=== PATIENT | male | born 1960 | race Caucasian/White ===

== ENCOUNTER 2016-06-19 11:44 | Inpatient (IN) | payer MEDICAID ==
[~2016-06-19] VITALS: Ht 182.9 cm; Wt 104.5 kg
[~2016-06-19 11:44] MED LIST: AMLO5TAB2 PO; BENA40TA PO; ISOS60TA24 PO; MET50T PO; PRE5T PO; TEMA30CA5 PO; TRAM50TA2 PO; TRAZ100T2 PO
[2016-06-19 13:16] LABS: Basophils # (auto) 0 uL; Basophils % (auto) 0.2 % (0.0-2.0); Eosinophils # (auto) 0 uL; Eosinophils % (auto) 0.2 % (0.0-7.0); Hematocrit 37.3 % (41.0-53.0); Hemoglobin 12.4 g/dL (13.5-17.5); Lymphocytes # (auto) 0.4 uL; Lymphocytes % (auto) 3.2 % (10.0-50.0); Mean Corpuscular Hemoglobin 29.6 pg (28.0-32.0); Mean Corpuscular Hgb Conc. 33.3 g/dL (32.0-36.0); Mean Corpuscular Volume 88.8 fL (80.0-100.0); Mean Platelet Volume 7.8 fL (7.4-10.4); Monocytes # (auto) 0.1 uL; Neutrophils # (auto) 10.4 uL; Neutrophils % (auto) 95.4 % (37.0-80.0); Platelet Count (auto) 277 10^3/uL (140-450); Red Cell Distribution Width 15.7 % (11.6-16.0); White Blood Cell 10.9 10^3/uL (4.4-10.8)
[2016-06-19 13:50] LABS: Albumin 2.8 g/dL (3.4-5.0); Alkaline Phosphatase 64 U/L (45-117); Anion Gap 15 (5-15); Aspartate Aminotransferase 22 U/L (15-37); BUN/Creatinine Ratio 14.9; Bilirubin, Total 0.5 mg/dL (0.2-1.0); Blood Urea Nitrogen 47 mg/dL (7-18); Calcium 8.6 mg/dL (8.5-10.1); Carbon Dioxide 19 mmol/L (21-32); Chloride 110 mmol/L (98-107); GFR African American 26 mL/min; GFR Non-African American 22 mL/min; Glucose 241 mg/dL (74-106); Sodium 144 mmol/L (136-145); Total Protein 6.5 g/dL (6.4-8.2)
[2016-06-19 14:08] LABS: Potassium 5.8 mmol/L (3.5-5.1)
[2016-06-19] MEDS ORDERED: ALBUTEROL SULF 2.5 MG/0.5ML(0.5%) NEB SOLN NEB STA (14:23)
[2016-06-19] MEDS ORDERED: SODIUM BICARBONATE 8.4% INJ 50ML SYRINGE IV ONE (14:30)
[2016-06-19] MEDS ORDERED: InsuLIN REG 1unit/0.01ml Soln (100units/ml) IV ONE (14:30)
[2016-06-19] MEDS ORDERED: DEXTROSE (50%) 50ML SYRG IV ONE (14:30)
[2016-06-19] MEDS ORDERED: CALCIUM GLUC 4.65 MEQ/10ML 4.65 MEQ in SODIUM CHL 0.9% 50 ML IV ONE (14:30)
[2016-06-19] MEDS ORDERED: SODIUM CHLORIDE 0.9% 1,000 ML IV ONE (14:47)
[2016-06-19] MEDS ORDERED: cefTRIAXone 1GM/50ML D5W 50 ML IV ONE ×2 (15:00→16:45)
[2016-06-19] MEDS ORDERED: TEMAZEPAM 15 MG CAP PO PRN (16:15)
[2016-06-19] MEDS ORDERED: MORPHINE SULF INJ 2 MG/ML SYRINGE 1ML IV PRN (16:15)
[2016-06-19] MEDS ORDERED: ONDANSETRON HCL 4 MG/2 ML VIAL IV PRN (16:15)
[2016-06-19] MEDS ORDERED: traMADol HCL 50 MG TAB PO PRN (16:15)
[2016-06-19] MEDS ORDERED: NITROGLYCERIN 0.4 MG SL TAB SL PRN (16:15)
[2016-06-19] MEDS ORDERED: predniSONE 5 MG TAB PO ONE (16:45)
[2016-06-19] MEDS ORDERED: amLODIPine BESYLATE 5 MG TAB PO ONE (16:45)
[2016-06-19] MEDS ORDERED: AZITHROMYCIN 500MG/D5W 250ML 250 ML IV ONE (16:45)
[2016-06-19] MEDS: MORPHINE SULF INJ 2 MG/ML SYRINGE 1ML IV PRN ×2 (16:46→23:56)
[2016-06-19] MEDS: ALBUTEROL SULF 2.5 MG/0.5ML(0.5%) NEB SOLN NEB SCH (18:15)
[2016-06-19] MEDS: SODIUM CHLORIDE 0.9% 1,000 ML IV SCH (18:21)
[2016-06-19 21:00] VITALS: BP 157/97
[2016-06-19] MEDS: traZODone HCL 50 MG TAB PO SCH (22:35)
[2016-06-20] MEDS: ALBUTEROL SULF 2.5 MG/0.5ML(0.5%) NEB SOLN NEB SCH ×5 (00:37→23:15)
[2016-06-20 03:51] VITALS: BP 157/97
[2016-06-20] MEDS ORDERED: GABA-339 PO (05:10)
[2016-06-20 05:31] VITALS: BP 119/85
[2016-06-20] MEDS: MORPHINE SULF INJ 2 MG/ML SYRINGE 1ML IV PRN ×2 (06:16→19:39)
[2016-06-20 07:19] LABS: Basophils # (auto) 0 uL; Eosinophils # (auto) 0 uL; Eosinophils % (auto) 0.1 % (0.0-7.0); Hematocrit 32.7 % (41.0-53.0); Hemoglobin 10.7 g/dL (13.5-17.5); Lymphocytes # (auto) 0.7 uL; Lymphocytes % (auto) 5.6 % (10.0-50.0); Mean Corpuscular Hemoglobin 29.2 pg (28.0-32.0); Mean Corpuscular Hgb Conc. 32.8 g/dL (32.0-36.0); Mean Platelet Volume 7.9 fL (7.4-10.4); Monocytes # (auto) 0.5 uL; Monocytes % (auto) 3.9 % (0.0-12.0); Neutrophils % (auto) 90.4 % (37.0-80.0); Platelet Count (auto) 258 10^3/uL (140-450); Red Cell Distribution Width 15.8 % (11.6-16.0); White Blood Cell 13.2 10^3/uL (4.4-10.8)
[2016-06-20 07:51] LABS: BUN/Creatinine Ratio 16.1; Calcium 8.9 mg/dL (8.5-10.1); Potassium 5.2 mmol/L (3.5-5.1)
[2016-06-20] MEDS: SODIUM CHLORIDE 0.9% 1,000 ML IV SCH ×2 (08:00→19:42)
[2016-06-20] MEDS: cefTRIAXone 1GM/50ML D5W 50 ML IV SCH (08:00)
[2016-06-20 09:00] VITALS: BP 130/78
[2016-06-20] MEDS: AZITHROMYCIN 500MG/D5W 250ML 250 ML IV SCH (09:48)
[2016-06-20] MEDS: predniSONE 5 MG TAB PO SCH (09:49)
[2016-06-20] MEDS: amLODIPine BESYLATE 5 MG TAB PO SCH (09:49)
[2016-06-20] MEDS: HYDROcodone-ACET 5/325MG TAB PO PRN ×3 (11:21→23:48)
[2016-06-20 13:00] VITALS: BP 124/78
[2016-06-20] MEDS ORDERED: DEXTROSE (50%) 50ML SYRG IV PRN (13:00)
[2016-06-20] MEDS ORDERED: GABAPENTIN 300 MG CAP PO ONE (13:00)
[2016-06-20] MEDS ORDERED: SODIUM POLYSTYRENE SULF 15GM/60ML SUSP PO ONE (13:00)
[2016-06-20 17:00] VITALS: BP 138/92
[2016-06-20] MEDS: InsuLIN REG 1unit/0.01ml Soln (100units/ml) SC SCH ×2 (17:00→21:48)
[2016-06-20] MEDS: ACCU-CHEK COMFORT CURVE STRIP VI SCH ×2 (17:08→21:48)
[2016-06-20] MEDS: Boost Glucose Control 8 Ounces PO SCH ×2 (17:24→21:42)
[2016-06-20] MEDS: GABAPENTIN 300 MG CAP PO SCH (21:41)
[2016-06-20] MEDS: traZODone HCL 50 MG TAB PO SCH (21:42)
[2016-06-20 22:00] VITALS: BP 126/76
[2016-06-21 05:42] VITALS: BP 134/90
[2016-06-21] MEDS: HYDROcodone-ACET 5/325MG TAB PO PRN (06:03)
[2016-06-21] MEDS: Boost Glucose Control 8 Ounces PO SCH ×2 (06:05→12:00)
[2016-06-21] MEDS: InsuLIN REG 1unit/0.01ml Soln (100units/ml) SC SCH ×2 (06:34→11:56)
[2016-06-21] MEDS: ACCU-CHEK COMFORT CURVE STRIP VI SCH ×2 (06:34→11:56)
[2016-06-21 07:08] LABS: Basophils # (auto) 0 uL; Basophils % (auto) 0.7 % (0.0-2.0); Eosinophils # (auto) 0.3 uL; Eosinophils % (auto) 4.6 % (0.0-7.0); Hematocrit 37.6 % (41.0-53.0); Hemoglobin 12.6 g/dL (13.5-17.5); Lymphocytes # (auto) 2.2 uL; Mean Corpuscular Hemoglobin 29.1 pg (28.0-32.0); Mean Corpuscular Hgb Conc. 33.6 g/dL (32.0-36.0); Mean Corpuscular Volume 86.7 fL (80.0-100.0); Mean Platelet Volume 7.4 fL (7.4-10.4); Monocytes # (auto) 0.5 uL; Monocytes % (auto) 8.5 % (0.0-12.0); Neutrophils # (auto) 2.9 uL; Neutrophils % (auto) 49.2 % (37.0-80.0); Platelet Count (auto) 221 10^3/uL (140-450); Red Cell Distribution Width 14.3 % (11.6-16.0); White Blood Cell 5.8 10^3/uL (4.4-10.8)
[2016-06-21 07:18] LABS: Albumin 2.5 g/dL (3.4-5.0); Calcium 7.8 mg/dL (8.5-10.1); Potassium 3.8 mmol/L (3.5-5.1)
[2016-06-21 07:22] LABS: Bilirubin, Total 0.6 mg/dL (0.2-1.0); Total Protein 5.6 g/dL (6.4-8.2)
[2016-06-21] MEDS: ALBUTEROL SULF 2.5 MG/0.5ML(0.5%) NEB SOLN NEB SCH ×2 (08:23→12:00)
[2016-06-21] MEDS: cefTRIAXone 1GM/50ML D5W 50 ML IV SCH (08:44)
[2016-06-21 09:00] VITALS: BP 126/86
[2016-06-21] MEDS: AZITHROMYCIN 500MG/D5W 250ML 250 ML IV SCH (09:38)
[2016-06-21] MEDS: GABAPENTIN 300 MG CAP PO SCH (09:38)
[2016-06-21] MEDS: amLODIPine BESYLATE 5 MG TAB PO SCH (09:38)
[2016-06-21] MEDS: predniSONE 5 MG TAB PO SCH (09:38)
[2016-06-21 13:00] VITALS: BP 120/81
[2016-06-21 13:11] VITALS: BP 120/81
== END 2016-06-21 18:40 | disposition home or self-care (01) | DRG 139 ==
LOC: ER 11:44 → TELE 11:45 → TELE-EAST 20:49
PROVIDERS: ADMIT Internal Medicine; ATTEND Internal Medicine
DX: J18.9 Pneumonia, unspecified organism (principal); N17.0 Acute kidney failure with tubular necrosis; E11.21 Type 2 diabetes mellitus with diabetic nephropathy; E44.0 Moderate protein-calorie malnutrition; N18.3 Chronic kidney disease, stage 3 (moderate); D72.829 Elevated white blood cell count, unspecified; E11.65 Type 2 diabetes mellitus with hyperglycemia; I25.10 Atherosclerotic heart disease of native coronary artery without angina pectoris; E87.5 Hyperkalemia; I12.9 Hypertensive chronic kidney disease with stage 1 through stage 4 chronic kidney disease, or unspecified chronic kidney disease; E66.9 Obesity, unspecified; F41.9 Anxiety disorder, unspecified; Q61.3 Polycystic kidney, unspecified; I25.2 Old myocardial infarction; Z90.89 Acquired absence of other organs; Z68.31 Body mass index [BMI] 31.0-31.9, adult
CPT/HCPCS: 36415; 71010; 71020; 80048; 80053; 82962; 83036; 84132; 84484; 85025; 93005; 94640; 96361; 96365; 96367; 96375; J0696; J1815

== ENCOUNTER 2016-08-24 07:00 | Inpatient (IN) | payer MEDICAID ==
[~2016-08-24] VITALS: Ht 208.3 cm; Wt 104.6 kg
[~2016-08-24 07:00] MED LIST changes: +GABA-339 PO
[2016-08-24 07:25] LABS: Basophils # (auto) 0 uL; Basophils % (auto) 0.1 % (0.0-2.0); Eosinophils # (auto) 0 uL; Hemoglobin 15.3 g/dL (13.5-17.5); Lymphocytes # (auto) 0.7 uL; Lymphocytes % (auto) 6.2 % (10.0-50.0); Mean Corpuscular Hemoglobin 29.4 pg (28.0-32.0); Mean Corpuscular Hgb Conc. 33.3 g/dL (32.0-36.0); Mean Platelet Volume 7.3 fL (7.4-10.4); Monocytes # (auto) 0.4 uL; Monocytes % (auto) 3.7 % (0.0-12.0); Neutrophils # (auto) 9.9 uL; Platelet Count (auto) 427 10^3/uL (140-450); White Blood Cell 11.1 10^3/uL (4.4-10.8)
[2016-08-24 07:40] LABS: INR 0.97 (0.9-1.15); Partial Thromboplastin Time 26.4 sec (22.64-33.71); Prothrombin Time 10.5 sec (9.37-12.3)
[2016-08-24 07:47] LABS: Albumin 3.7 g/dL (3.4-5.0); Alkaline Phosphatase 84 U/L (45-117); Anion Gap 12 (5-15); Aspartate Aminotransferase 11 U/L (15-37); BUN/Creatinine Ratio 15.3; Bilirubin, Total 0.3 mg/dL (0.2-1.0); Blood Urea Nitrogen 56 mg/dL (7-18); Calcium 8.9 mg/dL (8.5-10.1); Carbon Dioxide 17 mmol/L (21-32); Chloride 105 mmol/L (98-107); GFR African American 22 mL/min; GFR Non-African American 18 mL/min; Glucose 282 mg/dL (74-106); Magnesium 2.3 mg/dL (1.6-2.6); Potassium 4.7 mmol/L (3.5-5.1); Sodium 134 mmol/L (136-145); Total Protein 7.8 g/dL (6.4-8.2)
[2016-08-24 08:47] LABS: Urine Bilirubin Negative (Negative); Urine Blood Negative /uL (Negative); Urine Color Yellow (Yellow); Urine Glucose 4+ mg/dL (Normal); Urine Ketone Negative (Negative); Urine Nitrite Negative (Negative); Urine RBC <1 /hpf (0 - 3); Urine Squamous Epithelial Cell FEW /hpf (<5); Urine Urobilinogen Normal (Negative); Urine pH 5.5 (5.0-8.0)
[2016-08-24] MEDS ORDERED: CLOPIDOGREL BISULFATE 75 MG TAB PO ONE (09:00)
[2016-08-24] MEDS ORDERED: LABETALOL HCL 5 MG/ML 4ML SYRINGE IV ONE (09:30)
[2016-08-24] MEDS ORDERED: MORPHINE SULFATE 4 MG/ML SYRG IV ONE (09:30)
[2016-08-24] MEDS ORDERED: ONDANSETRON HCL 4 MG/2 ML VIAL IV ONE (09:30)
[2016-08-24 09:42] LABS: B-Type Natriuretic Peptide 12.54 pg/mL (0-100)
[2016-08-24 09:43] LABS: Temperature: 23.5 C (20.0-25.0)
[2016-08-24] MEDS ORDERED: traMADol HCL 50 MG TAB PO PRN (10:15)
[2016-08-24] MEDS ORDERED: LACTULOSE 20Gm/30ML SOLN PO PRN (10:15)
[2016-08-24] MEDS ORDERED: ACETAMINOPHEN 500 MG TAB PO PRN (10:15)
[2016-08-24] MEDS ORDERED: MORPHINE SULF INJ 2 MG/ML SYRINGE 1ML IV PRN (10:15)
[2016-08-24] MEDS ORDERED: AZITHROMYCIN 500MG/D5W 250ML 250 ML IV ONE (10:15)
[2016-08-24] MEDS ORDERED: DEXTROSE (50%) 50ML SYRG IV PRN (10:15)
[2016-08-24] MEDS ORDERED: PROMETHAZINE HCL 25 MG/ML 1ML IV PRN (10:15)
[2016-08-24] MEDS ORDERED: NITROGLYCERIN 0.4 MG SL TAB SL PRN (10:15)
[2016-08-24] MEDS ORDERED: LORazepam 0.5 MG TAB PO PRN (10:15)
[2016-08-24] MEDS: NITROGLYCERIN 0.2MG/HR TOPICAL PATCH TD SCH (10:25)
[2016-08-24] MEDS ORDERED: TEMAZEPAM 15 MG CAP PO PRN (10:30)
[2016-08-24] MEDS: ISOSORBIDE MONONITRATE 60 MG TAB PO SCH (10:45)
[2016-08-24] MEDS: amLODIPine BESYLATE 5 MG TAB PO SCH (10:45)
[2016-08-24] MEDS: ASPirin 81 mg TAB PO SCH (10:45)
[2016-08-24] MEDS: SODIUM CHLORIDE 0.9% 1,000 ML IV SCH ×2 (10:45→23:35)
[2016-08-24] MEDS: METOPROLOL TARTRATE 50 MG TAB PO SCH (10:45)
[2016-08-24] MEDS: ACCU-CHEK COMFORT CURVE STRIP VI SCH ×4 (12:03→23:53)
[2016-08-24] MEDS: InsuLIN REG 1unit/0.01ml Soln (100units/ml) SC SCH ×4 (12:04→23:54)
[2016-08-24] MEDS ORDERED: PATIENTS OWN MEDICATION (Gabapentin 1 TAB) PO SCH ×2 (14:00)
[2016-08-24] MEDS ORDERED: GABAPENTIN 300 MG CAP PO SCH (14:00)
[2016-08-24] MEDS ORDERED: MULT-397 OR (14:56)
[2016-08-24] MEDS: MORPHINE SULF INJ 2 MG/ML SYRINGE 1ML IV PRN ×2 (15:21→20:37)
[2016-08-24] MEDS ORDERED: TEMAZEPAM PO SCH (18:00)
[2016-08-24] MEDS: cefTRIAXone 1GM/50ML D5W 50 ML IV SCH (20:25)
[2016-08-24] MEDS: GABAPENTIN 300 MG CAP PO SCH (21:37)
[2016-08-24] MEDS: predniSONE 5 MG TAB PO SCH (21:37)
[2016-08-24 22:00] VITALS: BP 107/73
[2016-08-24] MEDS ORDERED: ATORVASTATIN 20 MG TAB PO SCH (22:00)
[2016-08-24] MEDS ORDERED: TEMAZEPAM 15 MG CAP PO SCH (22:00)
[2016-08-24] MEDS ORDERED: traZODone HCL 50 MG TAB PO SCH (22:00)
[2016-08-24] MEDS ORDERED: PATIENTS OWN MEDICATION (Trazodone Hcl 100 MG) PO SCH ×2 (22:00)
[2016-08-25] MEDS: MORPHINE SULF INJ 2 MG/ML SYRINGE 1ML IV PRN ×2 (01:42→05:58)
[2016-08-25] MEDS: ACCU-CHEK COMFORT CURVE STRIP VI SCH ×3 (03:52→12:00)
[2016-08-25] MEDS: InsuLIN REG 1unit/0.01ml Soln (100units/ml) SC SCH ×3 (03:53→12:00)
[2016-08-25 05:00] VITALS: BP 120/75
[2016-08-25 05:40] LABS: Albumin 2.9 g/dL (3.4-5.0); BUN/Creatinine Ratio 18.3; Bilirubin, Total 0.3 mg/dL (0.2-1.0); Total Protein 6.4 g/dL (6.4-8.2)
[2016-08-25 05:42] LABS: Basophils # (auto) 0 uL; Basophils % (auto) 0.2 % (0.0-2.0); Eosinophils # (auto) 0.1 uL; Eosinophils % (auto) 0.6 % (0.0-7.0); Hematocrit 38.4 % (41.0-53.0); Hemoglobin 12.9 g/dL (13.5-17.5); Lymphocytes # (auto) 0.9 uL; Lymphocytes % (auto) 8.4 % (10.0-50.0); Mean Corpuscular Hemoglobin 29.5 pg (28.0-32.0); Mean Corpuscular Hgb Conc. 33.5 g/dL (32.0-36.0); Mean Corpuscular Volume 88.1 fL (80.0-100.0); Mean Platelet Volume 7.4 fL (7.4-10.4); Monocytes # (auto) 0.5 uL; Monocytes % (auto) 4.9 % (0.0-12.0); Neutrophils # (auto) 9.1 uL; Neutrophils % (auto) 85.9 % (37.0-80.0); Platelet Count (auto) 334 10^3/uL (140-450); Red Cell Distribution Width 14.3 % (11.6-16.0); SUSPECT VIEW TRANSMISSION; White Blood Cell 10.6 10^3/uL (4.4-10.8)
[2016-08-25 08:54] VITALS: BP 122/79
[2016-08-25] MEDS: cefTRIAXone 1GM/50ML D5W 50 ML IV SCH (08:54)
[2016-08-25] MEDS: ASPirin 81 mg TAB PO SCH (09:45)
[2016-08-25] MEDS: METOPROLOL TARTRATE 50 MG TAB PO SCH (09:47)
[2016-08-25] MEDS: ISOSORBIDE MONONITRATE 60 MG TAB PO SCH (09:48)
[2016-08-25] MEDS: amLODIPine BESYLATE 5 MG TAB PO SCH (09:49)
[2016-08-25] MEDS: predniSONE 5 MG TAB PO SCH (09:49)
[2016-08-25] MEDS: NITROGLYCERIN 0.2MG/HR TOPICAL PATCH TD SCH (09:53)
[2016-08-25] MEDS: GABAPENTIN 300 MG CAP PO SCH (09:54)
[2016-08-25] MEDS ORDERED: AZITHROMYCIN 500MG/D5W 250ML 250 ML IV SCH (10:00)
[2016-08-25] MEDS ORDERED: PANT40T PO (12:18)
[2016-08-25 12:44] VITALS: BP 122/79
[2016-08-25 12:47] VITALS: BP 115/73
[2016-08-25] MEDS: SODIUM CHLORIDE 0.9% 1,000 ML IV SCH (12:55)
[2016-08-25] MEDS ORDERED: GABA-339 PO (13:11)
== END 2016-08-25 16:30 | disposition home or self-care (01) | DRG 198 ==
LOC: ER 07:09 → OVERFLOW 08:56 → OBSVTOIN 08:57 → TELE 08:58 → TELE-E-ADS 13:43 → TELE-WESTW 15:58
PROVIDERS: ADMIT Internal Medicine; ATTEND Internal Medicine
DX: R07.89 Other chest pain (principal); I25.2 Old myocardial infarction; Q61.3 Polycystic kidney, unspecified; F32.9 Major depressive disorder, single episode, unspecified; E87.1 Hypo-osmolality and hyponatremia; I12.9 Hypertensive chronic kidney disease with stage 1 through stage 4 chronic kidney disease, or unspecified chronic kidney disease; R73.9 Hyperglycemia, unspecified; I25.10 Atherosclerotic heart disease of native coronary artery without angina pectoris; M10.9 Gout, unspecified; N18.2 Chronic kidney disease, stage 2 (mild); Z82.49 Family history of ischemic heart disease and other diseases of the circulatory system; Z90.89 Acquired absence of other organs; Z82.61 Family history of arthritis; Z83.49 Family history of other endocrine, nutritional and metabolic diseases; Z84.89 Family history of other specified conditions
CPT/HCPCS: 36415; 71020; 80053; 80061; 80307; 81001; 82550; 82962; 83036; 83735; 83880; 84443; 84484; 85025; 85379; 85610; 85652; 85730; 86141; 93005; 96365; 96375; G0378; J0696; J1815; J2405; J3490

== ENCOUNTER 2016-11-06 11:24 | Emergency (ER) | payer MEDICAID ==
[~2016-11-06] VITALS: Ht 182.9 cm; Wt 104.3 kg
[~2016-11-06 11:24] MED LIST changes: -BENA40TA PO; +MULT-397 OR; +PANT40T PO; -TRAZ100T2 PO
[2016-11-06 11:48] VITALS: BP 131/97
== END 2016-11-06 12:23 | disposition home or self-care (01) ==
LOC: ER 11:24
DX: M11.272 Other chondrocalcinosis, left ankle and foot (principal); I10 Essential (primary) hypertension; M10.9 Gout, unspecified; E78.5 Hyperlipidemia, unspecified; I25.2 Old myocardial infarction; Z79.899 Other long term (current) drug therapy

== ENCOUNTER 2016-12-05 08:16 | Emergency (ER) | payer MEDICAID ==
[~2016-12-05] VITALS: Ht 170.2 cm; Wt 88.5 kg
[2016-12-05 09:46] VITALS: BP 120/92
== END 2016-12-05 10:00 | disposition home or self-care (01) ==
LOC: ER 08:16
DX: M11.271 Other chondrocalcinosis, right ankle and foot (principal); M10.9 Gout, unspecified; E78.5 Hyperlipidemia, unspecified; I10 Essential (primary) hypertension; I25.2 Old myocardial infarction; Z79.899 Other long term (current) drug therapy